=== PATIENT | female | born 1950 | race Asian ===

== ENCOUNTER 2025-03-04 08:04 | Emergency (ER) | payer OTHER ==
[~2025-03-04] VITALS: Ht 162.6 cm; Wt 67.2 kg
[2025-03-04] MEDS: ROCURONIUM BROMIDE 10 MG/ML 5 ML VIAL IVP ONE (08:13)
[2025-03-04] MEDS: ETOMIDATE 2 MG/ML 10 ML VIAL IVP ONE (08:13)
[2025-03-04 08:15] VITALS: PULSE 51; RESP 18; O2SAT 0
[2025-03-04] MEDS ORDERED: CALCIUM GLUCONATE 100 MG/ML 10 ML IVP ONE (08:40)
[2025-03-04] MEDS ORDERED: DOPamine HCL/D5W 400 MG/250 ML IV BAG IV ONE (08:40)
[2025-03-04] MEDS ORDERED: EPINEPHrine 1:10,000 [1 MG/10 ML] SYRINGE IVP ONE ×2 (08:40)
[2025-03-04] MEDS ORDERED: 0.9% SODIUM CHLORIDE 1,000 ML BAG IV ONE (08:40)
[2025-03-04] MEDS ORDERED: SODIUM BICARBONATE [ADULT] 8.4% 50 MEQ/50 ML SYRINGE IVP ONE (08:40)
[2025-03-04] MEDS: SODIUM CHLORIDE 0.9% 1,800 ML IV ONE (08:42)
[2025-03-04] MEDS: PHENYLEPHRINE 200 MG/D5%-WATER 250 ML IV PRN (08:45)
[2025-03-04] MEDS: NOREPINEPHRINE 8 MG/0.9 % NACL 250 ML IV PRN (08:48)
[2025-03-04 09:40] VITALS: BP 79/49; PULSE 74; RESP 18; TEMP 93.4; O2SAT 85
[2025-03-04 09:41] LABS: BASOPHILS % (AUTO) 0.8 % (0.0-2.0); EOSINOPHILS % (AUTO) 2.3 % (1.0-6.0); HEMATOCRIT 26.4 % (36-46); HEMOGLOBIN 7.8 g/dL (12.0-16.0); LYMPHOCYTES # (AUTO) 3.2 K/uL (1.0-4.8); LYMPHOCYTES % (AUTO) 45.1 % (22.0-44.0); MEAN CORPUSCULAR HEMOGLOBIN 29.4 pg (26.0-34.0); MEAN CORPUSCULAR HGB CONC 29.4 G/dL (31.0-37.0); MEAN CORPUSCULAR VOLUME 100 fL (80-100); MONOCYTES # (AUTO) 0.2 K/uL (0.1-1.0); MONOCYTES % (AUTO) 3.3 % (2.0-9.0); NEUTROPHILS # (AUTO) 3.4 K/uL (1.8-7.7); NEUTROPHILS % (AUTO) 48.5 % (40.0-70.0); PLATELET COUNT (AUTO) 132 K/uL (150-450); RED BLOOD CELL COUNT(AUTO) 2.64 MIL/uL (4.00-5.20); RED CELL DISTRIBUTION WIDTH 20.2 % (11.5-14.5); WHITE BLOOD COUNT (AUTO) 7.1 K/uL (4.5-11.0)
[2025-03-04 09:45] LABS: ANION GAP 17 mmol/L (8-16); CALCIUM, TOTAL 9.3 mg/dL (8.8-10.5); CARBON DIOXIDE 18 mmol/L (22-29); CHLORIDE 107 mmol/L (98-107); CREATININE 6.67 mg/dL (0.60-1.30); GLOMERULAR FILTR. RATE CALC 6 mL/min (>60); GLUCOSE,RANDOM 367 mg/dL (70-110); POTASSIUM 4.8 mmol/L (3.5-5.1); SODIUM SERUM 142 mmol/L (136-145); UREA NITROGEN, BLOOD 72 mg/dL (7-18)
[2025-03-04 09:51] LABS: CREATINE KINASE, TOTAL ONLY 69 U/L (26-192)
[2025-03-04] MEDS: TRANEXAMIC ACID 1,000 MG in DEXTROSE 5%-WATER 50 ML IV ONE (09:56)
[2025-03-04 09:57] LABS: TROPONIN I-HIGH SENSITIVITY 87 ng/L (<51)
[2025-03-04 09:58] LABS: LACTIC ACID 12.1 mmol/L (0.4-2.0)
[2025-03-04 10:45] LABS: ALBUMIN 2.2 g/dL (3.4-5.0); BILIRUBIN,DIRECT 0.2 mg/dL (0.00-0.20); BILIRUBIN,TOTAL 0.4 mg/dL (0.1-1.0); TOTAL PROTEIN, SERUM 4.6 g/dL (6.4-8.2)
== END 2025-03-04 14:04 ==
LOC: EMS 08:39 → MERGE 08:39 → EMS 14:04
DX: I46.9 Cardiac arrest, cause unspecified (principal); I10 Essential (primary) hypertension; E03.9 Hypothyroidism, unspecified; E78.00 Pure hypercholesterolemia, unspecified; Z88.8 Allergy status to other drugs, medicaments and biological substances; Z79.899 Other long term (current) drug therapy
CPT/HCPCS: 80048; 80076; 82140; 82550; 83605; 84484; 85025; 85610; 85730; 87040; 86850; 86900; 86901; 86920; 36415; 92950; 94002; 71045; 36430; 93005; 51702; 96361; 96374; 31500; 36556; 99291; P9016; J0610; J1265; J0171; J3490 ×2; J7060; J7030; J2370